=== PATIENT | female | born 1955 | race African-American/Black ===

== ENCOUNTER 2018-11-01 11:53 | Emergency (ER) | payer MEDICARE ==
[~2018-11-01] VITALS: Ht 162.6 cm; Wt 122.0 kg
[2018-11-01] MEDS ORDERED: GABAPENTIN 300MG CAPSULE PO STA (13:57)
[2018-11-01] MEDS ORDERED: IBUPROFEN 600MG TABLET PO ONE (14:00)
[2018-11-01 14:01] VITALS: BP 158/82
== END 2018-11-01 17:17 | disposition home or self-care (01) ==
LOC: ER 11:53
DX: M72.2 Plantar fascial fibromatosis (principal); J40 Bronchitis, not specified as acute or chronic; E11.9 Type 2 diabetes mellitus without complications; I10 Essential (primary) hypertension; Z98.51 Tubal ligation status; Z93.3 Colostomy status
CPT/HCPCS: 71045; 73630; 99283